=== PATIENT | female | born 1995 | race Caucasian/White ===

== ENCOUNTER 2017-08-17 21:15 | Inpatient (IN) | payer BC, OTHER ==
[~2017-08-17] VITALS: Ht 175.3 cm; Wt 83.9 kg
[2017-08-17] MEDS ORDERED: ACETAMINOPHEN 325 MG TABLET PO PRN ×2 (23:00→23:30)
[2017-08-17] MEDS ORDERED: MAGNESIUM HYDROXIDE 30 ML LIQUID UDC PO PRN ×2 (23:00→23:30)
[2017-08-17] MEDS ORDERED: LOPERAMIDE HCL 2 MG CAPSULE PO PRN ×4 (23:00→23:30)
[2017-08-17] MEDS ORDERED: CLONIDINE HCL 0.1 MG TABLET PO PRN ×2 (23:00→23:30)
[2017-08-17] MEDS ORDERED: LORAZEPAM 1 MG TABLET PO PRN ×4 (23:00→23:30)
[2017-08-17] MEDS ORDERED: MIRALAX 17 GM POWD.PACK PO PRN ×2 (23:00→23:30)
[2017-08-17] MEDS ORDERED: ONDANSETRON ODT 4 MG TAB.RAPDIS SL PRN ×2 (23:00→23:30)
[2017-08-17] MEDS ORDERED: LORAZEPAM 2 MG/1 ML VIAL IM PRN ×2 (23:00→23:30)
[2017-08-17] MEDS ORDERED: ONDANSETRON 4 MG/2 ML VIAL IM PRN ×2 (23:00→23:30)
[2017-08-17] MEDS ORDERED: IBUPROFEN 400 MG TABLET PO PRN ×2 (23:00→23:30)
[2017-08-17] MEDS ORDERED: diphenhydrAMINE 50 MG CAPSULE PO PRN ×2 (23:00→23:30)
[2017-08-17] MEDS ORDERED: THIAMINE HCL 200 MG/2 ML VIAL IM ONE (23:00)
[2017-08-17] MEDS ORDERED: MAG HYDROX/AL HYDROX/SIMETH 30 ML LIQUID UDC PO PRN ×2 (23:00→23:30)
[2017-08-17] MEDS ORDERED: QUET300T2 PO (23:47)
[2017-08-17] MEDS ORDERED: DIVA500T2 PO (23:47)
[2017-08-18 08:45] VITALS: BP 142/90
--- NOTE | 2017-08-18 08:45 | NUR ---
PRE-ADMISSION Pt is a 21 yr old female, pt is alert and oriented to person and place. Pt is presenting herself to [facility] for Xanax use and [place] use. Pt states she also takes Soma and Meth but last use was 2 months ago. Pt is noted with flat affect and with slurred speech. Pt was previously in the ER of [facility] for abdominal pain. Pt states of still having abdominal pain 8/10 and a headache 9/10. Facial grimacing is observed and facial flushed. Pt remains with IV on left forearm. IV site is intact and patent. VS are 142/90, P 115, R 18, T 98.2, O2 99%. Pt will be admitted to the 3rd floor. Will continue to monitor.
[2017-08-18] MEDS ORDERED: FOLIC ACID 1 MG TABLET PO SCH (09:00)
[2017-08-18] MEDS ORDERED: MULTIVITAMINS,THERAPEUTIC TABLET PO SCH (09:00)
[2017-08-18] MEDS ORDERED: TUBERCULIN,PURIF.PROT.DERIV. 5 TU/0.1 ML TEST ID ONE ×3 (09:00→10:00)
[2017-08-18] MEDS ORDERED: THIAMINE HCL 200 MG/2 ML VIAL IM ONE ×2 (09:00→10:00)
[2017-08-18] MEDS ORDERED: THIAMINE HCL 100 MG TABLET PO SCH ×2 (09:00)
[2017-08-18] MEDS ORDERED: PATIENT MAY USE OWN MED- MD OK PO SCH (09:15)
[2017-08-18] MEDS ORDERED: ONDA8TAB6 PO (09:30)
--- NOTE | 2017-08-18 10:00 | NUR ---
NSG NOTE Pt removed IV on left forearm, Pt states she does not remember removing the IV. No bleeding is noted. Will continue to monitor.
[2017-08-18] MEDS: MULTIVITAMINS,THERAPEUTIC TABLET PO SCH (10:12)
[2017-08-18] MEDS: FOLIC ACID 1 MG TABLET PO SCH (10:12)
[2017-08-18] MEDS ORDERED: KETOROLAC TROMETHAMINE 30 MG INJ IM PRN ×2 (11:00→12:30)
[2017-08-18] MEDS ORDERED: DIVALPROEX 500 MG TABLET.DR PO ONE (11:00)
[2017-08-18 11:20] LABS: *URINE HCG, QUAL NEGATIVE (NEGATIVE)
--- NOTE | 2017-08-18 11:20 | NUR ---
ADMISSION NOTE Pt is a 21 yr old female, AA&Ox2. Pt is noted with periods of forgetfulness and can note recall date and time. Pt is presenting herself to [facility] for Benzo and Opiate withdrawal. Pt arrived during the night but was send to the ER for c/o severe abdominal cramping. Pt received Morphine IV and diphenhydramine IV for pain and was discharged back to [facility]. Pt continues to c/o abdominal cramping 8/10 and headache 9/10. Facial grimacing and facial flushed is noted. Pt is noted with slurred speech. Body check was complete. Skin is intact, warm and moist to touch. Slight tremors are seen. Pt c/o muscle aching, nausea and sweats. Pt is a poor historian and is giving mix information in regards to use/PMH and Allergies. Pt states she has allergies to Compazine, Morphine, Vanco, Imitrex Mushrooms and Coconuts during intake. Pt was offered Toradol 30mg IM for pain and Ativan 2mg PO PRN for CIWA score of 14 at 1100. Pt refused to take Ativan and states, "Ativan makes me feel sick" and refused Toradol stating she has allergies to Toradol. Pt states of PMH of Hydrocephalus with Shunt in place, Peripheral Neuropathy and Bipolar Depression. Pt states she had multiple Intracranial surgery and V/P Shunt replacement and revisions. Pt states last Surgery was 7 months ago. Pt also states of Hx of Withdrawal-induced Sz, last episode was 6 months ago. Pt states of taking home medication Keppra (Unknown amount) for seizures, Depakote for Bipolar Disorder and Zofran for nausea. Pt brought home medication. Pt is on fall and seizure precautions. Substance Hx: 1. Xanax Pt states of taking Xanax for the past 5 yrs. Pt states of taking 12-24mg PO daily. Pt states she was in recovery center from July 21 to August 16 and relapsed for 2 days. Pt states last use was on 08/17/17, pt states of taking 7-9mg PO. 2. [place] Pt states of taking [place] for 5 years. Pt states of taking 12 (10mg) daily PO. Last use was 1 week ago, Pt states of taking 5 tabs(10mg). 3. Soma pt states of taking Soma 4 yrs ago. Pt states of taking 6 tabs daily. Last use was 4 months ago, Pt states of taking 6 tabs 4. Meth Pt states of taking Meth for the past 6 months. Pt would take 4g IV/Smoke/snort daily. Last use was 2 months, pt states of taking 4g smoke. 5. Marijuana - Pt states of smoking occasionally. Pt states she would use substances to numb her anxiety and depression. Pt states the substances has impacted her living situation stating, "I have nowhere to go" and states of "hanging with the wrong crowd". Pt states of wanting to stop using benzos and maintain a sober lifestyle. Pt was seen and examined by Dr. Virk. Pt is on PRNs for s/s of w/d. Pt was educated on medication regimen and plan of care. Further education is needs. Pt was oriented around unit and equipment in room. Will continue to monitor.
[2017-08-18 11:32] LABS: *AMPHETAMINE, URINE NEGATIVE (NEGATIVE); *BARBITURATE, URINE NEGATIVE (NEGATIVE); *CANNABINOID, URINE POSITIVE (NEGATIVE); *COCCAINE, URINE NEGATIVE (NEGATIVE); *OPIATE, URINE POSITIVE (NEGATIVE); *PHENCYCLIDINE SCREEN,URINE NEGATIVE (NEGATIVE)
[2017-08-18 12:00] VITALS: BP 97/53
[2017-08-18] MEDS ORDERED: IBUPROFEN 400 MG TABLET PO PRN (12:30)
[2017-08-18] MEDS ORDERED: diphenhydrAMINE 50 MG/1 ML VIAL IV ONE (13:30)
--- NOTE | 2017-08-18 13:40 | NUR ---
IV INSERT Nurses from ER insert 20 gauge IV to left forearm for CT of abdomen/pelvis with contrast. Site is intact and patent.
--- NOTE | 2017-08-18 13:42 | NUR ---
One time Benadryl 50mg IV administered to ease anxiety caused by pending CT scan of the abdomen w/wo contrast, Ct head w/o contrast. Primary nurse to reassess.
--- NOTE | 2017-08-18 14:52 | NUR ---
NSG NOTES Pt's IV on her left forearm was infiltrated and removed. minimal bleeding was noted. Site was kept clean and dry. Pt was noted with increase anxiety and agitation due to medication regimen. Pt is noted with sweats and facial redness. Pt c/o headache. CIWA score was 16. Pt was offered Ativan 2mg PO PRN for CIWA >12. Pt refused to administer. Pt states, "I'll throw up, I throw up after I take benzo's" Pt was offered Zofran to take with Ativan PRN, Pt was educated on medication regimen. Pt needs further education. Pt states, "I need Ativan IV". Pt was educated again on medication regimen. Pt needs further education. Will continue to monitor.
--- NOTE | 2017-08-18 15:09 | NUR ---
PRN GIVEN Pt was educated in regards to medication regimen and the protocols of the unit by CARLOS Genao. Pt verbalized understanding and agreed to take Ativan 2mg PO and Zofran 4mg Sl PRN for s/s of w/d. CIWA score was 16. Ativan 2mg PO PRN and Zofran 4mg PO PRN was given. Medication was paula well. Encoruaged increase fluid intake. Will continue to monitor.
--- NOTE | 2017-08-18 16:09 | NUR ---
PRN RE-ASSESSMENT Zofran 4mg SL and Ativan 2mg PO PRN was effective. Pt is currently in bed sleeping with respirations even and unlabored. CIWA score is deferred at this time due to pt was sleeping. Safety precautions observed. Call light is within reach. Will continue to monitor.
[2017-08-18 16:21] VITALS: BP 122/62
[2017-08-18] MEDS ORDERED: HYDROXYZINE PAMOATE 25 MG CAPSULE PO PRN (17:00)
--- NOTE | 2017-08-18 18:54 | NUR ---
END OF SHIFT Pt is a 21 yr old female, AA&Ox2. Pt was noted with periods of forgetfulness. Pt was admitted for Benzo/Opiate withdrawal and is on PRNs for s/s of w/d. Pt was noted with increase anxiety with agitation m/b difficulty staying still. Pt is noted with flat affect and facial redness. Pt c/o abdominal cramping and headache 12/01, Toradol PRN was offered but pt refused to take, stating she is allergic to Toradol and can take it with Benadryl IV PRN. Pt was given Ativan 2mg PO PRN for CIWA of 16 and Zofran 4mg SL PRN for nausea at 1509. Medication was effective. Pt was observed sleeping after 1 hour. Last CIWA score was 14 at 1814. Pt received a CT scan of head and abdomen/pelvis without contrast. CT of Abdomen/pelvis is still pending. Endorsed to manager global nurse to f/u. Pt is on fall and seizure precautions. Call light is within reach.
--- NOTE | 2017-08-18 18:54 | NUR ---
START OF SHIFT NOTE: Patient is a 21 year old female admitted today, on 08/18/2017, for withdrawal under medical supervision from Benzodiazepines/Xanax and Methamphetamine. Patient continues ordered PRN Medications. The patient reports Allergy to "Morphine, Imitrex, and Vancomycin ". Patient states"I have allergy to Compactin, Coconut, and Mushrooms". She is on Full Code, Regular Diet, Fall and Seizures precautions. Past Medical History: Anxiety, Bipolar Depression, Hydrocephalus w/Shunt in place, Peripheral Neuropathy, History of seizures. "Last Seizure was 6 months ago". Surgical History: 10 surgeries for Malfunctioned Shunt, 2 abdominal surgeries. She resting in the bed. Patient is alert and oriented x2: patient is not oriented to time, and situation. CT Head Scan without contrast done today, as ordered, and results placed in chart. CT scan of Abdomen/Pelvis without contrast done as ordered. Results are pending. Last CIWA = 14 at 1814 per outgoing day shift nurse report: Patient presented with anxiety, agitation, nervousness, headache, nasal congestion, tremors, nausea, abdominal cramps, generalized body aches, restlessness, and fatigue. She is appears worry, sad with poor eye contact, and with feelings of loneliness. Encouraged expresses her feeling, and reassuring provided. The patient noted disheveled, unkempt, and uncombed. Education for hygiene and safety provided. Patient verbalized understanding. VSWNL. Respirations are even and unlabored. Patient denies chest pain and cough. Abdomen is soft, non-tender. Bowel Sounds are active in all 4 quadrants. Skin is intact, warm, and dry to touch. DVT Pump applied when patient in the bed. Zofran 4 mg SL administrated PRN for nausea, Ativan 2 mg PO administrated PRN for CIWA=16, as ordered at 1510, were effective. Encouraged to intake fluids as tolerated. Encouraged to attend groups activities. Safety and calm environment provided. All needs met. Safety measures in place: Call Light within reach, bed locked in lowest position, padded bed rails up bilaterally. Patient endorsed by outgoing day shift nurse. Will continue to monitor closely.
[2017-08-18 20:00] VITALS: BP 129/75
[2017-08-18 20:43] LABS: BASOPHILS # (AUTO) 0.1 K/uL (0.0-8.0); BASOPHILS % (AUTO) 0.8 % (0.0-2.0); EOSINOPHILS # (AUTO) 0.2 K/uL (0.0-0.7); EOSINOPHILS % (AUTO) 2.3 % (0.0-7.0); HEMATOCRIT 37.1 % (31.2-41.9); HEMOGLOBIN 12.4 g/dL (10.9-14.3); LYMPHOCYTES # (AUTO) 1.9 K/uL (20.0-40.0); LYMPHOCYTES % (AUTO) 22.6 % (20.5-51.5); MEAN CORPUSCULAR HEMOGLOBIN 28.2 uug (24.7-32.8); MEAN CORPUSCULAR HGB CONC 33 g/dL (32.3-35.6); MEAN CORPUSCULAR VOLUME 84.4 fL (75.5-95.3); MONOCYTES # (AUTO) 0.7 K/uL (2.0-10.0); MONOCYTES % (AUTO) 8.6 % (0.0-11.0); NEUTROPHILS # (AUTO) 5.5 K/uL (1.8-8.9); NEUTROPHILS % (AUTO) 65.7 % (38.5-71.5); PLATELET COUNT (AUTO) 247 K/uL (179-408); WHITE BLOOD COUNT (AUTO) 8.4 K/uL (3.8-11.8)
[2017-08-18 20:59] LABS: ALANINE AMINOTRANSFERASE 17 U/L (14-59); ALKALINE PHOSPHATASE 91 U/L (50-136); ASPARTATE AMINOTRANSFERASE 8 U/L (15-37); BILIRUBIN,TOTAL 0.2 mg/dL (0.2-1.0); CARBON DIOXIDE 27 mmol/L (21-32); CHLORIDE 107 mmol/L (98-107); CREATININE 1.1 mg/dL (0.6-1.3); GLUCOSE 115 mg/dL (74-106); MAGNESIUM 1.9 mg/dL (1.8-2.4); POTASSIUM 3.9 mmol/L (3.5-5.1); TOTAL PROTEIN, SERUM 6.8 g/dL (6.4-8.2); UREA NITROGEN, BLOOD 14 mg/dL (7-18)
[2017-08-18 21:21] LABS: ETHANOL < 3 MG/DL (0-0)
[2017-08-18] MEDS: QUETIAPINE FUMARATE 200 MG TABLET PO SCH (21:33)
[2017-08-18] MEDS: DIVALPROEX 500 MG TABLET.DR PO SCH (21:33)
[2017-08-18 21:44] LABS: THYROID STIMULATING HORMONE 2.319 mIU/mL (0.358-3.740)
[2017-08-18] MEDS ORDERED: IBUP-1953 PO (21:59)
[2017-08-18] MEDS ORDERED: HYDR-3895 PO (21:59)
[2017-08-18] MEDS ORDERED: DIVA500T2 PO (21:59)
[2017-08-18] MEDS ORDERED: CLON0.1T14 PO (21:59)
[2017-08-18] MEDS ORDERED: DIPH50CA37 PO (21:59)
[2017-08-18] MEDS ORDERED: LORAZEPAM 1 MG TABLET PO ONE (22:45)
[2017-08-19] VITALS: BP 114/71
--- NOTE | 2017-08-19 04:00 | NUR ---
VS REFUSED, CIWA DEFERRED VS refused, CIWA deferred at 0400 d/t pt sleeping, to assess while pt is awake as ordered. All needs met. Safe and calm environment with minimized noises was provided. Safety measures on place. Call light within reach, bed in lowest position locked, padded rails up bilaterally. Will continue to monitor closely.
--- NOTE | 2017-08-19 07:20 | NUR ---
END OF SHIFT NOTE: Endorsed 21 year old female presented for withdrawal from Benzodiazepines/Xanax and Methamphetamine. Patient continues ordered Medications. Patient remains compliant with treatment, medications, and diet regime. The patient reports Allergy to "Morphine, Prochlorperazine, Toradol, and Vancomycin, Sumatriptan, Coconut, and Mushrooms ". Patient is alert and oriented x3: patient is not oriented to time. The patient appears anxious, sad with poor eye contact. Encouraged expresses her feeling, and reassuring provided. Education provided to use of Relaxation Techniques: Deep breathing exercises, guided imagery, and visualization. She is noted disheveled, unkempt, and uncombed. Education for hygiene and safety provided. Patient verbalized understanding. The most recent CIWA = 11 at 0000: Patient presented with anxiety, agitation, depression, nervousness, nasal congestion, tremors, abdominal cramps, restlessness, and fatigue. VSWNL. Respirations are even and unlabored. Patient denies chest pain and cough. Skin is intact, warm, and dry to touch. DVT Pump applied when patient in the bed. No PRN Medications administrated during shift supervisor. Patient sleep 6 hours, Intake: 1000 ml, Output: Voided x2. Encouraged to intake fluids as tolerated. Patient attended groups activities. Safety and calm environment provided. Patient slept 9 hours, intake 0 ml, voided x0. Encouraged to fluid intake as tolerated. All needs met. Safety measures in the place: Call light within reach, bed in the lowest position and locked, padded rails up x2. Patient endorsed to day shift nurse.
--- NOTE | 2017-08-19 07:43 | NUR ---
Start of shift- Pt 21 year old female admitted for withdrawal from Benzodiazepines/Xanax and Methamphetamine. The patient reports Allergy to "Morphine, Prochlorperazine, Toradol, and Vancomycin, Sumatriptan, Coconut, and Mushrooms ". Patient is alert and oriented x3: patient is not oriented to time. The patient appears anxious, sad with poor eye contact. Encouraged expresses her feeling, and reassuring provided. She is disheveled, unkempt, and uncombed. The last CIWA = 11 at 2400. DVT Pump applied when patient in the bed. No PRN Medications administrated during night cleaner. Patient sleep 6 hours. Encouraged to intake fluids as tolerated. Safety and calm environment provided. Patient slept 9 hours. Will continue to encourage pt to attend groups to learn/develop new copings kills to prevent relapse. Safety measures in place. Will continue to closely monitor s/s of withdrawal.
[2017-08-19 08:00] VITALS: BP 119/72
[2017-08-19] MEDS: MULTIVITAMINS,THERAPEUTIC TABLET PO SCH (08:33)
[2017-08-19] MEDS: FOLIC ACID 1 MG TABLET PO SCH (08:33)
[2017-08-19] MEDS: DIVALPROEX 500 MG TABLET.DR PO SCH ×2 (08:33→22:03)
[2017-08-19] MEDS: THIAMINE HCL 100 MG TABLET PO SCH (08:33)
--- NOTE | 2017-08-19 08:38 | NUR ---
PRN MOTRIN 400 MG PO FOR NECK PAIN #8/10 PRN ATIVAN 1 MG PO FOR CIWA 11 AND PT REPORTS ANXIETY
--- NOTE | 2017-08-19 09:40 | NUR ---
REASSESS FAVIO, PT STATES NECK PAIN NOW #7/, MEDICATION SLIGHTLY EFFECTIVE REASSESS ELENA ORTEGA 10 PT REPORTS SHE STILL HAS ANXIETY
[2017-08-19 11:00] VITALS: BP 141/77
--- NOTE | 2017-08-19 11:23 | NUR ---
ABDOMINAL PAIN- Pt c/o sharp ABD pain #01/31. Dr. Virk notified. Dr. Virk authorized Toradol 30 mg IM even though Pt had Motrin 3 hours prior. Pt declined Toradol and requested morphine or Dilaudid. Pt had bowel movement this am, soft brown formed. BP 141/77, HR 114, sat 100%, Temp 98.1 Addendum: 08/19/17 at 1140 by Enedelia Kay RN Dr. Virk ordered Ativan 2 mg PO now, Gabapentin 300 mg po now, and Inderal 20 mg po for elevated BP and heart rate. Pt expressed she was pleased and relieved with the Ativan order. Pt able to walk to snack room with steady gait afterwwards.
[2017-08-19] MEDS ORDERED: hydrALAZINE HCL 50 MG TABLET PO PRN (11:30)
[2017-08-19] MEDS ORDERED: LORAZEPAM 1 MG TABLET PO ONE (11:30)
[2017-08-19] MEDS ORDERED: IBUPROFEN 600 MG TABLET PO PRN (11:30)
[2017-08-19] MEDS ORDERED: GABAPENTIN 300 MG CAPSULE PO ONE (11:30)
[2017-08-19] MEDS ORDERED: PROPRANOLOL HCL 20 MG TABLET PO ONE (11:30)
[2017-08-19 12:00] VITALS: BP 136/96
--- NOTE | 2017-08-19 12:20 | NUR ---
REASSESS ABDOMINAL PAIN- After gabapentin and Ativan stomach pain now #5/10. Pt reports less anxiety, able to ambulate to patio to smoke, VS improved after Inderal.
[2017-08-19] MEDS: GABAPENTIN 300 MG CAPSULE PO SCH ×2 (14:24→22:04)
[2017-08-19] MEDS ORDERED: DIVALPROEX 500 MG TABLET.DR PO ONE (15:00)
[2017-08-19 16:00] VITALS: BP 142/92
[2017-08-19] MEDS ORDERED: GABA-534 PO (16:07)
[2017-08-19] MEDS ORDERED: IBUP-1955 PO (16:12)
[2017-08-19] MEDS ORDERED: PROP20TA19 PO (16:12)
--- NOTE | 2017-08-19 17:35 | NUR ---
PRN VISTARIL 50 MG PO FOR ANXIETY.
--- NOTE | 2017-08-19 18:27 | NUR ---
Reassess Vistaril- Pt reports decreased anxiety and Vistaril was effective.
--- NOTE | 2017-08-19 18:28 | NUR ---
End of shift- Pt 21 year old female admitted for withdrawal from Benzodiazepines/Xanax and Methamphetamine. The patient reports Allergy to Morphine, Prochlorperazine, and Vancomycin, Sumatriptan, Coconut, and Mushrooms. The patient anxious, somatic, histrionic, sad with poor eye contact. Pt c/o abdominal cramping and headache 10/10, Toradol PRN was offered but pt refused to take, stating she is allergic to Toradol and requested morphine or Dialudid. Pt report pain resolved with PRN dose of Ativan and scheduled dose of gabapentin. Encouraged pt to expresses her feelings, and reassuring provided. Encourage pt to attend groups to learn/develop new copings kills to prevent relapse. Pt scheduled for discharge tomorrow. The last CIWA 8. PRN Ativan and Motrin administered per MD orders. Encouraged to intake fluids as tolerated. Safety and calm environment provided. Encouraged pt to attend groups to learn/develop new copings kills to prevent relapse. Pt FULL CODE. Adequate PO fluid intake 1947ml, void X 3, BM x 1. Safety measures in place. Will continue to closely monitor s/s of withdrawal. Endorsed to PM shift.
[2017-08-19 20:00] VITALS: BP 132/94
--- NOTE | 2017-08-19 20:00 | NUR ---
START OF SHIFT NOTE RECEIVED REPORT FROM DAY SHIFT NURSE. PATIENT IS A 21 YEAR OLD MALE ADMITTED FOR BENZO/OPIATE WITHDRAWAL. PATIENT IS DISCHARGING TOMORROW. PATIENT WAS C/O ABDOMINAL PAIN AND ANXIETY. PATIENT WAS GIVEN PRN ATIVAN , MOTRIN AND VISTARIL . LAST CIWA 8. PATIENT RECEIVED ALERT AND ORIENTED X 4. RESPIRATION EVEN AND UNLABORED. PATIENT PRESENTS WITH LABILE AFFECT, ANXIOUS AND RESTLESS. SAFETY MEASURES IN PLACE. CALL LIGHT IN REACH.WILL CONTINUE TO MONITOR.
[2017-08-19] MEDS: PROPRANOLOL HCL 20 MG TABLET PO SCH (22:04)
[2017-08-19] MEDS: QUETIAPINE FUMARATE 200 MG TABLET PO SCH (22:05)
--- NOTE | 2017-08-20 | NUR ---
CIWA DEFERRED PATIENT SLEEPING. RESPIRATION EVEN AND UNLABORED. VS REFUSED . SAFETY MEASURES IN PLACE. WILL CONTINUE TO MONITOR
--- NOTE | 2017-08-20 04:00 | NUR ---
CIWA DEFERRED PATIENT SLEEPING. RESPIRATION EVEN AND UNLABORED. VS REFUSED . SAFETY MEASURES IN PLACE. WILL CONTINUE TO MONITOR
--- NOTE | 2017-08-20 07:20 | NUR ---
END OF SHIFT NOTE PATIENT SLEPT 5 HOURS. FLUID INTAKE 1,150 ML. VOIDED X 3. NO BM. MONITORED PATIENT THROUGHOUT SHIFT. PATIENT IS DISCHARGING TODAY. PATIENT COMPLIANT WITH MEDICATION AND TREATMENT PLAN. MEDICATION GIVEN ORDERED, TOLERATED WELL AND NO ADVERSE REACTION. PATIENT WAS ANXIOUS AND RESTLESS BEGINNING OF SHIFT. PATIENT DID NOT REQUIRE PRN MEDICATION. PATIENT DID NOT C/O ABDOMINAL PAIN DURING SHIFT. SAFETY MEASURES IN PLACE. CALL LIGHT IN REACH.WILL CONTINUE TO MONITOR. LAST CIWA 8.
--- NOTE | 2017-08-20 07:30 | NUR ---
START OF SHIFT PT IS A 21 Y/O F ADMITTED FOR MEDICALLY SUPERVISED BENZO, OPIATE, METH WITHDRAWAL. RECEIVED PT A/O X4, RESPIRATION AND UNLABORED. PT HAS A FLAT AFFECT, HAS POOR EYE CONTACT AND DISHEVELED APPEARANCE. PT PRESENTS AGITATION AND ANXIETY. PT STATES SHE IS READY TO LEAVE DETOX BUT HAS ANXIETY ABOUT "WHAT'S TO COME." PT IS TO BE DISCHARGED TO DAY. LAST CO SIDE RAILS UPX2, BED IN LOW POSITION. CALL LIGHT WITHIN REACH. SAFETY MEASURES IN PLACE. WILL MONITOR UNTIL DISCHARGE.
[2017-08-20 08:00] VITALS: BP 108/69
[2017-08-20 09:02] VITALS: BP 108/69
[2017-08-20] MEDS: FOLIC ACID 1 MG TABLET PO SCH (09:02)
[2017-08-20] MEDS: GABAPENTIN 300 MG CAPSULE PO SCH (09:02)
[2017-08-20] MEDS: THIAMINE HCL 100 MG TABLET PO SCH (09:02)
[2017-08-20] MEDS: PROPRANOLOL HCL 20 MG TABLET PO SCH (09:02)
[2017-08-20] MEDS: MULTIVITAMINS,THERAPEUTIC TABLET PO SCH (09:02)
[2017-08-20] MEDS: DIVALPROEX 500 MG TABLET.DR PO SCH (09:03)
--- NOTE | 2017-08-20 09:27 | NUR ---
DISCHARGE NOTE PT LEFT THE UNIT IN STABLE CONDITION, VS WNL, AT 0927 ON 08/19/17. PT HAS BEEN EDUCATED WITH DISCHARGED INSTRUCTIONS AND PT VERBALIZED UNDERSTANDING. LAST CIWA 5. AWARE OF PT'S DISCHARGE. PT LEFT THE BUILDING WITH ALL BELONGINGS, PRESCRIPTIONS. PT HAS BEEN PICKED UP BY [facility].
[2017-08-20 12:06] LABS: HEPATITIS B SURFACE AG Negative (Negative)
--- NOTE | 2017-08-22 09:33 | NUR ---
CONTRAST INJECTION INFILTRATED AND THE REMAINING CONTRAST WAS WAISTED FOR ACCT.[id number]
== END 2017-08-20 09:27 | disposition other institution (70) | DRG 895 ==
LOC: UNDOADMIN 22:43 → SRC 22:43
PROVIDERS: ADMIT Internal Medicine; ATTEND Internal Medicine
PROC: HZ2ZZZZ Detoxification Services for Substance Abuse Treatment (ICD-10-PCS; principal; 2017-08-18)
PROC: HZ41ZZZ Group Counseling for Substance Abuse Treatment, Behavioral (ICD-10-PCS; 2017-08-19)
DX: F13.230 Sedative, hypnotic or anxiolytic dependence with withdrawal, uncomplicated (principal); G40.919 Epilepsy, unspecified, intractable, without status epilepticus; I15.9 Secondary hypertension, unspecified; F41.9 Anxiety disorder, unspecified; Z59.0 Homelessness; Z59.1 Inadequate housing; Z91.89 Other specified personal risk factors, not elsewhere classified; F90.9 Attention-deficit hyperactivity disorder, unspecified type; F17.210 Nicotine dependence, cigarettes, uncomplicated; Z91.5 Personal history of self-harm; F31.9 Bipolar disorder, unspecified; F12.20 Cannabis dependence, uncomplicated; Z98.2 Presence of cerebrospinal fluid drainage device; F15.10 Other stimulant abuse, uncomplicated; Z80.3 Family history of malignant neoplasm of breast; Z88.1 Allergy status to other antibiotic agents; Z88.6 Allergy status to analgesic agent; Z91.018 Allergy to other foods; Z81.1 Family history of alcohol abuse and dependence; Z80.1 Family history of malignant neoplasm of trachea, bronchus and lung; R10.11 Right upper quadrant pain
CPT/HCPCS: 36415; 70030-TC; 80307; 80346; 80349; 80361; 83735; 84443; 84703; 85025; 86580; 86592; 86705; 86803; 87340; 87806; A4663; G0480; J1200; J1885; J3411; Q0162

== ENCOUNTER 2017-08-17 23:21 | Emergency (ER) | payer BC, OTHER ==
[~2017-08-17] VITALS: Ht 175.3 cm; Wt 86.2 kg
[2017-08-17] MEDS ORDERED: DIVA500T2 PO (23:47)
[2017-08-17] MEDS ORDERED: QUET300T2 PO (23:47)
--- NOTE | 2017-08-17 23:50 | NUR ---
Dr. Osman at bedside for MSE.
[2017-08-18] MEDS ORDERED: diphenhydrAMINE 50 MG/1 ML VIAL IV ONE
[2017-08-18] MEDS ORDERED: MORPHINE SULFATE 2 MG/1 ML DISP.SYRIN IV ONE
[2017-08-18] MEDS ORDERED: ONDANSETRON 4 MG/2 ML VIAL IV ONE
[2017-08-18] MEDS ORDERED: IV NORMAL SALINE 1000 ML BAG IV ONE
[2017-08-18] MEDS ORDERED: MORPHINE SULFATE 4 MG/1 ML DISP.SYRIN ONE (00:19)
[2017-08-18] MEDS ORDERED: diphenhydrAMINE 50 MG/1 ML VIAL ONE (00:19)
[2017-08-18] MEDS ORDERED: ONDANSETRON 4 MG/2 ML VIAL ONE (00:20)
[2017-08-18 00:29] LABS: *BILIRUBIN,URIN NEGATIVE (NEGATIVE); *BLOOD, URINE NEGATIVE (NEGATIVE); *CLARITY,URINE CLEAR (CLEAR); *COLOR,URINE LIGHT YELLOW (YELLOW); *KETONES,URINE NEGATIVE (NEGATIVE); *PROTEIN,URINE NEGATIVE (NEGATIVE); *UROBILINOGEN,URINE 0.2 E.U./dl (NORMAL); LEUKOCYTE ESTERASE ,URINE NEGATIVE (NEGATIVE); NITRITE, URINE NEGATIVE (NEGATIVE); PH,URINE 5.5 (5.0-8.0); UGLUCOSE NEGATIVE (NEGATIVE)
[2017-08-18 00:30] LABS: *URINE HCG, QUAL NEGATIVE (NEGATIVE)
[2017-08-18 00:31] LABS: BASOPHILS # (AUTO) 0.1 K/uL (0.0-8.0); BASOPHILS % (AUTO) 0.9 % (0.0-2.0); EOSINOPHILS # (AUTO) 0.1 K/uL (0.0-0.7); EOSINOPHILS % (AUTO) 1.2 % (0.0-7.0); HEMATOCRIT 40.2 % (31.2-41.9); HEMOGLOBIN 13.5 g/dL (10.9-14.3); LYMPHOCYTES # (AUTO) 2.2 K/uL (20.0-40.0); LYMPHOCYTES % (AUTO) 20.1 % (20.5-51.5); MEAN CORPUSCULAR HEMOGLOBIN 28.4 uug (24.7-32.8); MEAN CORPUSCULAR HGB CONC 34 g/dL (32.3-35.6); MEAN CORPUSCULAR VOLUME 84.6 fL (75.5-95.3); MONOCYTES # (AUTO) 0.9 K/uL (2.0-10.0); MONOCYTES % (AUTO) 7.9 % (0.0-11.0); NEUTROPHILS # (AUTO) 7.6 K/uL (1.8-8.9); NEUTROPHILS % (AUTO) 69.9 % (38.5-71.5); PLATELET COUNT (AUTO) 232 K/uL (179-408); RED BLOOD CELL COUNT(AUTO) 4.76 MIL/uL (3.63-4.92); WHITE BLOOD COUNT (AUTO) 10.8 K/uL (3.8-11.8)
[2017-08-18 00:38] LABS: BACTERIA,URINE MODERATE /HPF (NONE SEEN); RBC,URINE 0-3 /HPF (0-3); WBC,URINE 0-3 /HPF (0-3)
[2017-08-18 00:39] LABS: SQUAMOUS EPITHELIAL CELL,UR MODERATE /HPF (NONE SEEN)
[2017-08-18 00:49] LABS: POTASSIUM 3.8 mmol/L (3.5-5.1)
[2017-08-18 00:54] LABS: BILIRUBIN,DIRECT 0.1 mg/dL (0.0-0.2); BILIRUBIN,TOTAL 0.2 mg/dL (0.2-1.0); TOTAL PROTEIN, SERUM 7.6 g/dL (6.4-8.2)
--- NOTE | 2017-08-18 01:30 | NUR ---
Patient sleeping, no acute signs of distress.
--- NOTE | 2017-08-18 02:30 | NUR ---
Patient sleeping in bed, no acute signs of distress.
--- NOTE | 2017-08-18 03:30 | NUR ---
Patient sleeping in bed, no acute signs of distress.
--- NOTE | 2017-08-18 05:00 | NUR ---
Patient awake, reports abdominal pain and headache, requesting pain medication. MD notified.
[2017-08-18] MEDS ORDERED: ACETAMINOPHEN ES 500 MG TABLET ONE (05:11)
[2017-08-18] MEDS ORDERED: ACETAMINOPHEN ES 500 MG TABLET PO ONE (05:15)
--- NOTE | 2017-08-18 05:15 | NUR ---
Patient refused tylenol, reports "cannot swallow any pills at the moment" requests benadryl". notified.
--- NOTE | 2017-08-18 06:00 | NUR ---
Patient sleeping in bed, no acute signs of distress.
--- NOTE | 2017-08-18 07:03 | NUR ---
Passed report to Eve BLUNT
--- NOTE | 2017-08-18 07:17 | NUR ---
Patient is sleeping but arouses easy. Per Dr Ruiz and Dr Virk, pt to go back to [facility]. I will call and arrange for admission.
--- NOTE | 2017-08-18 07:23 | NUR ---
Per [facility] staff, they will be sending and "intake" person soon to ER to take patient to [facility]. i ordered a breakfast tray for her.
--- NOTE | 2017-08-18 07:31 | NUR ---
Patient was asked by Dr lau if she is wiling now to to the CT scan and patient still refused.
--- NOTE | 2017-08-18 07:35 | NUR ---
patient denies pain at this time.
--- NOTE | 2017-08-18 07:45 | NUR ---
counseling director from [facility] arrived and escorted patient back to [facility].
[2017-08-18] MEDS ORDERED: ONDA8TAB6 PO (09:30)
[2017-08-18] MEDS ORDERED: HYDR-3895 PO (21:59)
[2017-08-18] MEDS ORDERED: CLON0.1T14 PO (21:59)
[2017-08-18] MEDS ORDERED: DIVA500T2 PO (21:59)
[2017-08-18] MEDS ORDERED: IBUP-1953 PO (21:59)
[2017-08-18] MEDS ORDERED: DIPH50CA37 PO (21:59)
[2017-08-19] MEDS ORDERED: GABA-534 PO (16:07)
[2017-08-19] MEDS ORDERED: IBUP-1955 PO (16:12)
[2017-08-19] MEDS ORDERED: PROP20TA19 PO (16:12)
== END 2017-08-18 07:48 | disposition home or self-care (01) ==
LOC: ER 23:22
DX: R10.11 Right upper quadrant pain (principal); F13.10 Sedative, hypnotic or anxiolytic abuse, uncomplicated; F17.210 Nicotine dependence, cigarettes, uncomplicated; F12.10 Cannabis abuse, uncomplicated; F15.10 Other stimulant abuse, uncomplicated; Z88.5 Allergy status to narcotic agent; Z88.1 Allergy status to other antibiotic agents; Z88.8 Allergy status to other drugs, medicaments and biological substances; Z79.899 Other long term (current) drug therapy
CPT/HCPCS: 36415; 80048; 80076; 81001; 83690; 84703; 85025; 96361; 96374; 96375; 99284; A4663 ×2; A9150; J1200; J2270; J2405; J7030

== ENCOUNTER 2017-08-18 11:49 | Outpatient (CLI) | payer BC, OTHER ==
[~2017-08-18 11:49] MED LIST: DIVA500T2 PO; ONDA8TAB6 PO; QUET300T2 PO
[2017-08-18] MEDS ORDERED: IV NORMAL SALINE 100 ML ONE (13:11)
[2017-08-18] MEDS ORDERED: IOHEXOL 300MG/ML 100 ML INFUS..BTL ONE (13:11)
[2017-08-18] MEDS ORDERED: SWABABLE VALVE TRANSFER SET EA MC ONE (13:11)
[2017-08-18] MEDS ORDERED: IBUP-1953 PO (21:59)
[2017-08-18] MEDS ORDERED: DIPH50CA37 PO (21:59)
[2017-08-18] MEDS ORDERED: HYDR-3895 PO (21:59)
[2017-08-18] MEDS ORDERED: DIVA500T2 PO (21:59)
[2017-08-18] MEDS ORDERED: CLON0.1T14 PO (21:59)
[2017-08-19] MEDS ORDERED: GABA-534 PO (16:07)
[2017-08-19] MEDS ORDERED: IBUP-1955 PO (16:12)
[2017-08-19] MEDS ORDERED: PROP20TA19 PO (16:12)
== END 2017-08-18 23:59 | disposition home or self-care (01) ==
LOC: RAD 11:49
PROVIDERS: ATTEND Internal Medicine
DX: R90.82 White matter disease, unspecified (principal); G93.89 Other specified disorders of brain; K82.0 Obstruction of gallbladder; N83.201 Unspecified ovarian cyst, right side; J98.11 Atelectasis
CPT/HCPCS: 70450; J3490; Q9967

== ENCOUNTER 2018-03-17 15:18 | Emergency (ER) | payer BC, OTHER ==
[~2018-03-17] VITALS: Ht 175.3 cm; Wt 88.5 kg
[~2018-03-17 15:18] MED LIST changes: +DIPH50CA37 PO; +GABA-534 PO; +HYDR-3895 PO; +IBUP-1955 PO; +PROP20TA19 PO
--- NOTE | 2018-03-17 16:03 | NUR ---
is at bedside doing the MSE.
[2018-03-17] MEDS ORDERED: diphenhydrAMINE 50 MG/1 ML VIAL ONE ×2 (16:22→16:56)
[2018-03-17] MEDS ORDERED: METOCLOPRAMIDE HCL 10 MG/2 ML VIAL ONE (16:22)
[2018-03-17] MEDS: IV NORMAL SALINE 1000 ML BAG IV ONE (16:22)
[2018-03-17] MEDS: diphenhydrAMINE 50 MG/1 ML VIAL IV ONE ×2 (16:22→16:59)
--- NOTE | 2018-03-17 16:22 | NUR ---
"Can you push the Benadryl real fast?" per patient's verbalization. Explained to patient that the common side effects of Benadryl, monitored closely
[2018-03-17] MEDS: METOCLOPRAMIDE HCL 10 MG/2 ML VIAL IV ONE (16:39)
--- NOTE | 2018-03-17 16:49 | NUR ---
Patient is back from CT scan, c/o pains & redness to left arm. IV fluids is infusing well, MD notified.
--- NOTE | 2018-03-17 16:51 | NUR ---
IVPB Reglan was discontinued per MD. Mild redness to left arm noted, no hives seen, no wheezes heard.
--- NOTE | 2018-03-17 17:00 | NUR ---
Patient is demanding loudly for another dose of IV MD Darryl notified. treasury director Ayan notified.
--- NOTE | 2018-03-17 17:15 | NUR ---
Patient ambulated to bathroom 2x with brisk steady gait. CT results are in, for disposition@ this time, no vomiting episodes while in ER seen. Patient is frequently requesting for her IV fluids to be flushed. "I just want to make sure my Benadryl is pushed in." per patient's verbalization.
--- NOTE | 2018-03-17 17:26 | NUR ---
Patient is eating dinner with very good appetite, NAD.
--- NOTE | 2018-03-17 17:29 | NUR ---
IV removed. Catheter intact and site benign. Pressure and 4x4 gauze applied to site. No bleeding noted. Patient discharged to home in stable conditon. Written and verbal after care instructions given to patient. Patient verbalizes understanding of instructions.
--- NOTE | 2018-03-17 17:31 | NUR ---
Patient's "rehab" was called to pick her up. ETA=15min
== END 2018-03-17 17:44 | disposition home or self-care (01) ==
LOC: ER 15:20
DX: R51 Headache (principal); F17.200 Nicotine dependence, unspecified, uncomplicated; F12.10 Cannabis abuse, uncomplicated; F15.10 Other stimulant abuse, uncomplicated; R11.10 Vomiting, unspecified; F13.10 Sedative, hypnotic or anxiolytic abuse, uncomplicated; Z88.1 Allergy status to other antibiotic agents; Z88.8 Allergy status to other drugs, medicaments and biological substances; Z91.018 Allergy to other foods; Z88.6 Allergy status to analgesic agent; Z88.5 Allergy status to narcotic agent
CPT/HCPCS: 70450; 96361; 96374; 96375; 96376; 99284; J1200 ×2; J2765; A4663; J3490; J7030

== ENCOUNTER 2018-03-18 15:51 | Emergency (ER) | payer BC ==
[~2018-03-18] VITALS: Ht 175.3 cm; Wt 88.5 kg
[~2018-03-18 15:51] MED LIST changes: -DIPH50CA37 PO; -GABA-534 PO; -IBUP-1955 PO; -PROP20TA19 PO; -QUET300T2 PO
[2018-03-18] MEDS ORDERED: KETOROLAC TROMETHAMINE 15 MG INJ ONE (16:11)
[2018-03-18] MEDS ORDERED: diphenhydrAMINE 50 MG/1 ML VIAL ONE ×2 (16:11→17:38)
[2018-03-18] MEDS ORDERED: KETOROLAC TROMETHAMINE 15 MG INJ IVP ONE (16:15)
[2018-03-18] MEDS ORDERED: diphenhydrAMINE 50 MG/1 ML VIAL IV ONE (16:15)
--- NOTE | 2018-03-18 16:15 | NUR ---
PT IS IN ROOM #1B. DR PALACIOS EVALUATED THE PT.
[2018-03-18 17:03] LABS: BASOPHILS # (AUTO) 0.1 K/uL (0.0-8.0); BASOPHILS % (AUTO) 1.1 % (0.0-2.0); EOSINOPHILS # (AUTO) 0.2 K/uL (0.0-0.7); HEMATOCRIT 35.8 % (31.2-41.9); HEMOGLOBIN 12.1 g/dL (10.9-14.3); LYMPHOCYTES # (AUTO) 1.9 K/uL (20.0-40.0); LYMPHOCYTES % (AUTO) 38.7 % (20.5-51.5); MEAN CORPUSCULAR HEMOGLOBIN 28.9 uug (24.7-32.8); MEAN CORPUSCULAR HGB CONC 34 g/dL (32.3-35.6); MEAN CORPUSCULAR VOLUME 85.2 fL (75.5-95.3); MONOCYTES # (AUTO) 0.4 K/uL (2.0-10.0); MONOCYTES % (AUTO) 9.2 % (0.0-11.0); NEUTROPHILS # (AUTO) 2.2 K/uL (1.8-8.9); PLATELET COUNT (AUTO) 209 K/uL (179-408); WHITE BLOOD COUNT (AUTO) 4.8 K/uL (3.8-11.8)
[2018-03-18 17:04] LABS: CREATININE 0.9 mg/dL (0.6-1.3); POTASSIUM 3.9 mmol/L (3.5-5.1)
[2018-03-18] MEDS ORDERED: IV NORMAL SALINE 1000 ML BAG IV ONE (17:15)
[2018-03-18] MEDS ORDERED: diphenhydrAMINE 50 MG/1 ML VIAL IM ONE (17:45)
--- NOTE | 2018-03-18 18:06 | NUR ---
PT WAS D/C TO HOME BY DR PALACIOS. D/C INSTRUCTIONS GIVEN TO THE PT BY DR PALACIOS.
[2018-03-18 18:09] VITALS: BP 123/78
== END 2018-03-18 18:10 | disposition home or self-care (01) ==
LOC: ER 15:52
DX: G40.909 Epilepsy, unspecified, not intractable, without status epilepticus (principal); R51 Headache; F17.200 Nicotine dependence, unspecified, uncomplicated; F12.10 Cannabis abuse, uncomplicated; F15.10 Other stimulant abuse, uncomplicated; F19.90 Other psychoactive substance use, unspecified, uncomplicated; Z91.018 Allergy to other foods; Z88.1 Allergy status to other antibiotic agents; Z88.8 Allergy status to other drugs, medicaments and biological substances; Z88.5 Allergy status to narcotic agent
CPT/HCPCS: 36415; 80048; 80164; 85025; 96372; 96374; 96375; 99283; J1200 ×2; J1885; A4663; J7030

== ENCOUNTER 2018-04-27 10:27 | Emergency (ER) | payer BC, OTHER ==
[~2018-04-27] VITALS: Ht 175.3 cm; Wt 81.6 kg
[2018-04-27] MEDS ORDERED: diphenhydrAMINE 50 MG/1 ML VIAL IV ONE ×2 (11:00→12:45)
[2018-04-27] MEDS ORDERED: METOCLOPRAMIDE HCL 10 MG/2 ML VIAL IV ONE ×2 (11:00→12:45)
[2018-04-27] MEDS ORDERED: IV NORMAL SALINE 1000 ML BAG IV ONE (11:00)
[2018-04-27] MEDS ORDERED: diphenhydrAMINE 50 MG/1 ML VIAL ONE ×2 (11:26→12:43)
[2018-04-27] MEDS ORDERED: METOCLOPRAMIDE HCL 10 MG/2 ML VIAL ONE ×2 (11:27→12:44)
--- NOTE | 2018-04-27 13:09 | NUR ---
MSE COMPLETED, IV MEDS AND FLUIDS ADMIN. 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 PT AMBULATED W/O DIFF.
[2018-04-27 13:10] VITALS: BP 140/78
== END 2018-04-27 13:11 | disposition home or self-care (01) ==
LOC: ER 10:27
DX: R11.10 Vomiting, unspecified (principal); F17.200 Nicotine dependence, unspecified, uncomplicated; F15.10 Other stimulant abuse, uncomplicated; F12.10 Cannabis abuse, uncomplicated; Z91.018 Allergy to other foods; Z88.1 Allergy status to other antibiotic agents; Z88.5 Allergy status to narcotic agent; Z88.8 Allergy status to other drugs, medicaments and biological substances; Z79.899 Other long term (current) drug therapy
CPT/HCPCS: 96361; 96374; 96375; 96376; 99283; J1200 ×2; J2765 ×2; A4663; J7030

== ENCOUNTER 2018-05-17 15:12 | Emergency (ER) | payer BC, OTHER ==
[~2018-05-17] VITALS: Ht 175.3 cm; Wt 81.6 kg
[2018-05-17] MEDS: METOCLOPRAMIDE HCL 10 MG/2 ML VIAL IM ONE ×2 (16:25→16:29)
[2018-05-17] MEDS: HYDROMORPHONE 1 MG/1 ML DISP.SYRIN IM ONE ×2 (16:25→16:28)
[2018-05-17] MEDS ORDERED: HYDROMORPHONE 1 MG/1 ML DISP.SYRIN ONE (16:26)
[2018-05-17] MEDS ORDERED: METOCLOPRAMIDE HCL 10 MG/2 ML VIAL ONE (16:26)
--- NOTE | 2018-05-17 16:29 | NUR ---
IM meds are cancelled by MD. IV meds were preferred by patient.
[2018-05-17] MEDS ORDERED: LORAZEPAM 2 MG/1 ML VIAL IV ONE (17:00)
[2018-05-17] MEDS ORDERED: METOCLOPRAMIDE HCL 10 MG/2 ML VIAL IV ONE (17:00)
[2018-05-17] MEDS ORDERED: HYDROMORPHONE 1 MG/1 ML DISP.SYRIN IV ONE (17:00)
[2018-05-17] MEDS ORDERED: LORAZEPAM 2 MG/1 ML VIAL ONE (17:05)
[2018-05-17 17:16] LABS: BASOPHILS # (AUTO) 0.1 K/uL (0.0-8.0); BASOPHILS % (AUTO) 0.9 % (0.0-2.0); EOSINOPHILS # (AUTO) 0.1 K/uL (0.0-0.7); EOSINOPHILS % (AUTO) 0.9 % (0.0-7.0); HEMATOCRIT 38.2 % (31.2-41.9); LYMPHOCYTES # (AUTO) 2.7 K/uL (20.0-40.0); LYMPHOCYTES % (AUTO) 30.1 % (20.5-51.5); MEAN CORPUSCULAR HGB CONC 34 g/dL (32.3-35.6); MEAN CORPUSCULAR VOLUME 85.1 fL (75.5-95.3); MONOCYTES # (AUTO) 0.7 K/uL (2.0-10.0); MONOCYTES % (AUTO) 7.9 % (0.0-11.0); NEUTROPHILS # (AUTO) 5.4 K/uL (1.8-8.9); NEUTROPHILS % (AUTO) 60.2 % (38.5-71.5); PLATELET COUNT (AUTO) 203 K/uL (179-408); RED BLOOD CELL COUNT(AUTO) 4.49 MIL/uL (3.63-4.92)
--- NOTE | 2018-05-17 17:37 | NUR ---
minimal redness to inner left forearm noted, no wheezes heard, MD notified. Patient wants IV Benadryl notified again. No new orders at this time.
[2018-05-17] MEDS ORDERED: diphenhydrAMINE 50 MG/1 ML VIAL IV ONE (17:45)
[2018-05-17] MEDS ORDERED: diphenhydrAMINE 50 MG/1 ML VIAL ONE (17:47)
--- NOTE | 2018-05-17 18:23 | NUR ---
NPO observe for now, still for disposition, NAD.
[2018-05-17 18:35] LABS: POTASSIUM 3.2 mmol/L (3.5-5.1)
--- NOTE | 2018-05-17 18:39 | NUR ---
Patient is AOx4 & argumentative, Dr Evans is at bedside explaining in details re: his recommendation.
[2018-05-17 18:40] LABS: BILIRUBIN,DIRECT 0.1 mg/dL (0.0-0.2); BILIRUBIN,TOTAL 0.6 mg/dL (0.2-1.0); TOTAL PROTEIN, SERUM 8.2 g/dL (6.4-8.2)
--- NOTE | 2018-05-17 18:58 | NUR ---
IV removed. Catheter intact and site benign. Pressure and 4x4 gauze applied to site. No bleeding noted. Patient discharged to home in stable conditon & brsik steady gait. Written and verbal after care instructions given to patient. Patient verbalizes understanding of instructions.
== END 2018-05-17 18:59 | disposition home or self-care (01) ==
LOC: ER 15:15
DX: G40.909 Epilepsy, unspecified, not intractable, without status epilepticus (principal); F17.200 Nicotine dependence, unspecified, uncomplicated; F12.10 Cannabis abuse, uncomplicated; F15.10 Other stimulant abuse, uncomplicated; F19.90 Other psychoactive substance use, unspecified, uncomplicated; Z79.899 Other long term (current) drug therapy; Z88.1 Allergy status to other antibiotic agents; Z88.5 Allergy status to narcotic agent; Z88.8 Allergy status to other drugs, medicaments and biological substances; Z91.018 Allergy to other foods; Z91.030 Bee allergy status
CPT/HCPCS: 36415; 70450; 71045; 72125; 80048; 80076; 83605; 84484; 84702; 85025; 85730; 87040 ×2; 93005; 96374; 96375; 99284; J1170; J1200; J2060; J2765; 70030-TC; A4663; J3490; J7030

== ENCOUNTER 2018-05-17 20:47 | Inpatient (IN) | payer BC, OTHER ==
[~2018-05-17] VITALS: Ht 175.3 cm; Wt 81.6 kg
--- NOTE | 2018-05-17 21:12 | NUR ---
[facility] called for panel call
[2018-05-17] MEDS ORDERED: IV NORMAL SALINE 1000 ML BAG IV ONE (21:15)
[2018-05-17] MEDS ORDERED: ONDANSETRON IV *ER 4 MG/2 ML VIAL IV ONE (21:15)
[2018-05-17] MEDS ORDERED: ONDANSETRON 4 MG/2 ML VIAL ONE (21:43)
[2018-05-17] MEDS ORDERED: LORAZEPAM 2 MG/1 ML VIAL ONE (21:44)
[2018-05-17] MEDS ORDERED: LORAZEPAM 2 MG/1 ML VIAL IV ONE (21:45)
[2018-05-17] MEDS ORDERED: IV NS 1000 ML 1,000 ML IV PRN (22:12)
[2018-05-17] MEDS ORDERED: diphenhydrAMINE 50 MG/1 ML VIAL ONE (22:12)
[2018-05-17] MEDS ORDERED: HYDROXYZINE PAMOATE 25 MG CAPSULE PO PRN (22:15)
[2018-05-17] MEDS ORDERED: Z GUARD REMEDY PASTE 57 GM TUBE TOP PRN (22:15)
[2018-05-17] MEDS ORDERED: diphenhydrAMINE 50 MG/1 ML VIAL IV PRN (22:15)
[2018-05-17] MEDS ORDERED: ONDANSETRON 4 MG/2 ML VIAL IV PRN (22:15)
[2018-05-17] MEDS ORDERED: ONDANSETRON ODT 4 MG TAB.RAPDIS SL PRN (22:15)
[2018-05-17] MEDS ORDERED: ACETAMINOPHEN 325 MG TABLET PO PRN (22:15)
--- NOTE | 2018-05-17 22:23 | NUR ---
Pt. admitted to TELE, under care of Dr. Galindo Belongs List completed
--- NOTE | 2018-05-17 22:30 | NUR ---
Received patient from emergency department via gurney, patient ambulated to transfer to hospital bed. With IV access at left wrist, 22g, patent and intact to ongoing IVF, infusing well. Noted per Thierry from ED, patient experienced itchiness after zofran injection and was given dipenhydramine injection at ED, noted some redness on arms and legs that looked like scratch rey. Patient complaining of headache 10/10 and chest pain 6/10. Patient asking insistently for dilaudid or morphine and ativan, noted per chart review per Wilson Galindo NP, patient will not be given opioids and benzodiazepine, patient informed of this. Patient currently in stable condition, will continue to monitor.
[2018-05-17 23:03] VITALS: BP 126/88
--- NOTE | 2018-05-17 23:30 | NUR ---
Patient upset that dilaudid or ativan not ordered and requesting for another attending MD or transfer to another hospital where she can receive "better care." Patient informed that she has the right to leave the hospital if she wishes to however it will be considered leaving against medical advice and that she will be responsible of her well being when she leaves the hospital. Patient informed that there is only one on-call doctor tonight and that another doctor will come in for the morning at 8 am. Patient asking again if she can get dilaudid or ativan, informed her that orders are needed.
--- NOTE | 2018-05-18 01:00 | NUR ---
Currently patient is calm, and verbalized that she will wait for the other doctor who will come in the morning. Noted patient currently admitted on telemetry and has the monitor in place. Troponin came back negative and patient currently on normal sinus rhythm on tele monitor. Will continue to monitor.
--- NOTE | 2018-05-18 05:56 | NUR ---
Patient verbalizing she is in severe pain, patient informed again that doctor did not order any dilaudid, morphine or ativan. Noted MD does not wanna give patient any opioids or benzodiazepine. Patient informed that hospitalist will make rounds this morning and she can discuss medication management with the MD. Patient does not want to take tylenol, states it does not help with the pain. Patient also declined to have her vital signs checked this morning. Ensured patient safety and comfort.
--- NOTE | 2018-05-18 07:32 | NUR ---
Sleeping, appears comfortable
[2018-05-18] MEDS ORDERED: DIVALPROEX 500 MG TABLET.DR PO SCH ×2 (09:00→17:00)
--- NOTE | 2018-05-18 10:00 | NUR ---
Patient desires to go home against medical advice when informed that no other pain medication was/will be ordered per doctor. Coordinated with Rachel BLUNT at [facility] but will not accept patient back if leaving AMA. Spoke with patient and patient stayed to wait for doctor's discharge order
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
[2018-05-18 11:24] VITALS: BP 105/63
[2018-05-18] MEDS ORDERED: VALPROATE SODIUM IV 1,000 MG in IV DEXTROSE 5% 100 ML IV ONE (11:30)
--- NOTE | 2018-05-18 14:00 | NUR ---
EEG ordered to clear for discharge. Tech Marky called to do procedure today
[2018-05-18 15:03] VITALS: BP_SYST 115; BP_SYST 135; BP_DIAS 47; BP_DIAS 66
--- NOTE | 2018-05-18 16:00 | NUR ---
EEG machine not functioning, [employer] called, still to be fixed. Tech to come back with another machine
--- NOTE | 2018-05-18 18:07 | NUR ---
EEG done at bedside and forwarded to Neurologist. Waiting for reading pending discharge
--- NOTE | 2018-05-18 19:18 | NUR ---
With discharge order. Called [facility] to coordinate picker box operator. Endorsed for further follow up
--- NOTE | 2018-05-18 19:28 | NUR ---
RECEIVED PT AWAKE, ALERT, ORIENTEDX4. WITING TO BE DISCHARGE. IV ACCESS TAKEN OUT. PT STABLE WITH NO ACUTE DISTRESS. WAITING FOR [facility]NEL TO PICK HER UP.
--- NOTE | 2018-05-18 19:38 | NUR ---
Discharged per ambulatory in fair condition, not in distress, afebrile. accompanied by nursing personnel picked up by [facility] personnel
== END 2018-05-18 20:48 | disposition other institution (70) | DRG 101 ==
LOC: ER 20:48 → UNDOADMIN 21:50 → TELE 21:50 → MED 05-18 08:00
PROVIDERS: ADMIT Nurse Practitioner Acute Care; ATTEND Registered Nurse
DX: G40.909 Epilepsy, unspecified, not intractable, without status epilepticus (principal); G91.3 Post-traumatic hydrocephalus, unspecified; F13.239 Sedative, hypnotic or anxiolytic dependence with withdrawal, unspecified; F11.20 Opioid dependence, uncomplicated; G89.4 Chronic pain syndrome; Z76.5 Malingerer [conscious simulation]; F17.210 Nicotine dependence, cigarettes, uncomplicated; Z98.2 Presence of cerebrospinal fluid drainage device; Z91.030 Bee allergy status; Z88.5 Allergy status to narcotic agent; Z88.8 Allergy status to other drugs, medicaments and biological substances; Z91.018 Allergy to other foods; Z87.820 Personal history of traumatic brain injury; Z79.899 Other long term (current) drug therapy; Z91.19 Patient's noncompliance with other medical treatment and regimen; G62.9 Polyneuropathy, unspecified; R07.9 Chest pain, unspecified; F19.10 Other psychoactive substance abuse, uncomplicated
CPT/HCPCS: 36415; 70030-TC; 80164; 93005; A4663; G0378; J1200; J2060; J2405; J3490; J7030; J7060

== ENCOUNTER 2018-05-21 17:29 | Emergency (ER) | payer BC, OTHER ==
[~2018-05-21] VITALS: Ht 175.3 cm; Wt 81.6 kg
--- NOTE | 2018-05-21 17:54 | NUR ---
PT IS IN ROOM #1A. DR BLISS EVALUATED THE PT.
[2018-05-21] MEDS ORDERED: IV NORMAL SALINE 1000 ML BAG IV ONE (18:00)
[2018-05-21] MEDS ORDERED: LORAZEPAM 2 MG/1 ML VIAL IV ONE (18:00)
[2018-05-21] MEDS ORDERED: ONDANSETRON 4 MG/2 ML VIAL IV ONE (18:00)
[2018-05-21] MEDS ORDERED: MORPHINE SULFATE 2 MG/1 ML DISP.SYRIN IV ONE (18:00)
[2018-05-21] MEDS ORDERED: LORAZEPAM 2 MG/1 ML VIAL ONE (18:22)
[2018-05-21] MEDS ORDERED: MORPHINE SULFATE 4 MG/1 ML DISP.SYRIN ONE (18:22)
[2018-05-21] MEDS ORDERED: diphenhydrAMINE 50 MG/1 ML VIAL ONE (18:23)
[2018-05-21] MEDS ORDERED: ONDANSETRON 4 MG/2 ML VIAL ONE (18:23)
[2018-05-21] MEDS ORDERED: LORAZEPAM 2 MG/1 ML VIAL IM ONE (18:30)
[2018-05-21] MEDS ORDERED: MORPHINE SULFATE 4 MG/1 ML DISP.SYRIN IM ONE (18:30)
[2018-05-21] MEDS ORDERED: ONDANSETRON 4 MG/2 ML VIAL IM ONE (18:30)
[2018-05-21] MEDS ORDERED: diphenhydrAMINE 50 MG/1 ML VIAL IM ONE (18:30)
--- NOTE | 2018-05-21 18:33 | NUR ---
PT WAS D/C'd TO HOME. D/C INSTRUCTIONS GIVEN TO THE PT. PT DENIES PAIN. NO S/S OF DISTRESS AT THIS TIME. GAIT IS STABLE.
[2018-05-21 18:35] VITALS: BP 136/71
== END 2018-05-21 18:39 | disposition home or self-care (01) ==
LOC: ER 17:29
DX: R51 Headache (principal); R07.89 Other chest pain; R11.10 Vomiting, unspecified; F17.200 Nicotine dependence, unspecified, uncomplicated; F12.10 Cannabis abuse, uncomplicated; F19.90 Other psychoactive substance use, unspecified, uncomplicated; F15.10 Other stimulant abuse, uncomplicated; Z88.1 Allergy status to other antibiotic agents; Z88.8 Allergy status to other drugs, medicaments and biological substances; Z91.018 Allergy to other foods; Z91.030 Bee allergy status; Z79.899 Other long term (current) drug therapy
CPT/HCPCS: 71045; 93005; 96372 ×4; 99283; J1200; J2060; J2270; J2405; A4663

== ENCOUNTER 2018-05-27 20:03 | Emergency (ER) | payer BC, OTHER ==
[~2018-05-27] VITALS: Ht 175.3 cm; Wt 86.2 kg
--- NOTE | 2018-05-27 20:24 | NUR ---
Patient is AAOx4. 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 Patient has c/o CP , non radiating. States she has been stressed out, anxious, and is currently being treated with Diazepam at her detox facility. EKG completed at patient arrival. No further complaints or symptoms are noted at this time.
--- NOTE | 2018-05-27 20:30 | NUR ---
Patient is screaming, stating " I just want the Ativan, give me the drugs". Survey Crew Chief from the patients drug rehabilitation facility states she is not allowed to take this type of medication during her stay at the Detox. Patient is now stating she will leave her detox facility, and wants to be transfered to another location. Will continue to monitor patient. Awaiting decision from Detox facility and patient regarding her medication/condition management options.
[2018-05-27] MEDS ORDERED: diphenhydrAMINE 50 MG/1 ML VIAL ONE (20:54)
[2018-05-27] MEDS ORDERED: diphenhydrAMINE 50 MG/1 ML VIAL IM ONE (21:00)
--- NOTE | 2018-05-27 21:02 | NUR ---
Patient discharged to home in stable conditon. Written and verbal after care instructions given. Patient verbalizes understanding of instructions. Ambulated from ER with stable gait. All belongings with patient. VSS
[2018-05-27 21:03] VITALS: BP 128/81
== END 2018-05-27 21:04 | disposition home or self-care (01) ==
LOC: ER 20:05
DX: R09.1 Pleurisy (principal); F17.200 Nicotine dependence, unspecified, uncomplicated; F12.10 Cannabis abuse, uncomplicated; F15.10 Other stimulant abuse, uncomplicated; Z88.5 Allergy status to narcotic agent; Z91.018 Allergy to other foods; Z91.030 Bee allergy status; Z88.1 Allergy status to other antibiotic agents; Z88.8 Allergy status to other drugs, medicaments and biological substances; Z79.899 Other long term (current) drug therapy
CPT/HCPCS: 87400; 93005; 96372; 99284; J1200; A4663